=== PATIENT | female | born 1980 | race Caucasian/White ===

== ENCOUNTER 2020-08-30 16:46 | Emergency (ER) | payer OTHER ==
[2020-08-30 17:14] LABS: #Basophils 0.1 10x3/uL (0.0-0.2); #Eosinphils 0.1 10x3/uL (0.0-0.5); #Monocytes 0.8 10x3/uL (0.0-1.1); #Neutrophils 9.7 10x3/uL (1.5-8.4); %Basophils 0.4 % (0.0-2.0); %Eosinophils 0.4 % (0.0-6.0); %Lymphocytes 22.5 % (18.0-47.0); %Monocytes 5.5 % (0.0-10.0); %Neutrophils 70.9 % (40.0-75.0); Hemoglobin 12.8 g/dL (12.0-15.5); Mean Corpuscular HGB CONC 31.8 g/dL (32.0-36.0); Mean Corpuscular Hemoglobin 29.1 pg (27.0-33.0); Mean Corpuscular Volume 91.4 fl (81.6-98.3); Mean Platelet Volume 12.1 fl (7.4-10.4); Platelet Count 289 10x3/uL (150-450); RBC Distribution Width 13.5 % (11.5-14.5); White Blood Cell (WBC) Count 13.7 10x3/uL (3.5-10.5)
[2020-08-30 17:23] LABS: ALT (SGPT) 34 U/L (8-55); AST (SGOT) 33 U/L (5-34); Albumin 4.1 g/dL (3.5-5.0); Alkaline Phosphatase 116 U/L (40-110); Anion Gap 16 mmol/L (10-20); BUN (Urea Nitrogen) 13 mg/dL (7.0-18.7); Bilirubin, Total 0.3 mg/dL (0.2-1.2); Calc. Creatinine Clearance 0 mL/min (70-130); Calcium 9.2 mg/dL (7.8-10.44); Carbon Dioxide 24 mmol/L (22-29); Chloride 104 mmol/L (98-107); Globulin 3.3 g/dL (2.4-3.5); Glucose 93 mg/dL (70-105); Lipase 12 U/L (8-78); Protein, Total 7.4 g/dL (6.0-8.3); Sodium 140 mmol/L (136-145)
[2020-08-30] MEDS ORDERED: Metoclopramide HCl 10 MG/2 ML VIAL ONE (19:11)
== END 2020-08-30 19:51 | disposition home or self-care (01) ==
LOC: CSHERS 16:46
DX: R14.2 Eructation (principal); I10 Essential (primary) hypertension; R07.89 Other chest pain; R10.13 Epigastric pain
CPT/HCPCS: 71045; 80053; 83690; 84484; 85025; 93005; 96374; J2765

== ENCOUNTER 2024-07-01 15:01 | Outpatient (CLI) | payer BC | END 2024-07-01 15:02 | disposition home or self-care (01) | LOC: CSHMAMMO 15:01 | PROVIDERS: ATTEND Obstetrics & Gynecology | DX: Z12.31 Encounter for screening mammogram for malignant neoplasm of breast (principal); Z80.3 Family history of malignant neoplasm of breast | CPT/HCPCS: 77063; 77067 ==